=== PATIENT | male | born 1970 | race Caucasian/White ===

== ENCOUNTER → 2017-02-12 | Day surgery (SDC) | payer OTHER ==
[~2017-02-12] MED LIST: ALLERGY SHOT; ALLERGY SHOT IM; EFFEXOR XR PO; FLOMAX0.4 MG PO; KLONOPIN PO; NEXIUM PO; PRAVACHOL PO; SEROQUEL300 MG PO; VICODIN 5/500 T1 TAB PO
--- NOTE | ~2017-02-12 | OR ---
Unit #: [id number] #: [id number] Patient: ZARIA BURTON [id number] [address] [address] [id number] MR#: [id number] NAME: ZARIA BURTON ROOM: Date of Procedure: 02/12/2017 Admission Date: 02/12/2017 Surgeon: Venkat Gil M.D. : 1970 Attending Physician: Venkat Gil M.D. OPERATIVE REPORT PREOPERATIVE DIAGNOSES Dyspepsia and nausea. PROCEDURES PERFORMED Upper gastrointestinal endoscopy and biopsy as well as upper gastrointestinal endoscopy and dilation. POSTOPERATIVE DIAGNOSES 1. The patient had a distal esophageal benign stricture. The latter was dilated using an 18 to 20 mm TTS balloon. 2. There was a small hiatus hernia. 3. Mild prepyloric antral gastritis. This was in the form of erythema in the antral area. Biopsies were obtained from the antrum for CLOtest. 4. The patient had multiple gastric polyps in the fundus. These were hyperplastic polyps. The distal esophageal stricture was dilated using an 18 to 20 mm TTS balloon. In addition, a biopsy was obtained from the antrum for CLOtest. RECOMMENDATIONS The patient will continue on Nexium one tablet 40 mg p.o. daily. He will be followed up in the office in 3 months' time. SEDATION USED MAC. DESCRIPTION OF PROCEDURE Following detailed explanation of the potential risks and complications of an upper endoscopy, namely perforation, and complications related to sedation, the patient was brought to GI lab and laid in the left lateral decubitus position. Lubricated tip of the Olympus video upper endoscope was passed through the bite block into the proximal esophagus under direct vision. The entire esophageal mucosa was examined and the patient was noted to have classic benign stricture in the distal esophagus. This was clearly obstructing. In addition, a small hiatus hernia was noted. The scope was then advanced into the gastric cavity and the latter was insufflated. Mucosa of the fundus, body, and antrum was examined and mild prepyloric antral erythema was noted indicating antral gastritis. Pylorus was intubated with visualization of the normal duodenal bulb and second and third part of the duodenum. Upon withdrawal and retroflexion; incisura, cardia, and greater curve was examined and a biopsy was obtained from the antrum for CLOtest. The scope was then withdrawn in the distal esophagus. An 18 to 20 mm TTS balloon was passed through the accessory Unit #: [id number] #: [id number] Patient: ZARIA BURTON channel of the scope and step-up dilation of the distal esophagus was done. The entire esophageal mucosa was examined all the way up to pharynx. No additional findings were noted. The patient tolerated the procedure without any postprocedure complications. Dictated by... Maria Esther Malik/clarissa TD: 02/12/2017 14:34 JOB #: [id number] CC: Eduardo Beal M.D. OPERATIVE REPORT Page 1 of 1 X Venkat Gil MD X PROCEDURE OPERATIVE NOTE
== END | disposition home or self-care (01) ==
LOC: COPS 11:32
DX: K22.2 Esophageal obstruction (principal); K44.9 Diaphragmatic hernia without obstruction or gangrene; K29.70 Gastritis, unspecified, without bleeding; K31.7 Polyp of stomach and duodenum; K21.9 Gastro-esophageal reflux disease without esophagitis; Z79.899 Other long term (current) drug therapy; Z98.890 Other specified postprocedural states
CPT/HCPCS: 87077; J2250